=== PATIENT | male | born 1965 | race Caucasian/White ===

== ENCOUNTER 2023-05-19 13:13 | Inpatient (IN) | payer MEDICARE, BC, SELFPAY ==
[2023-05-19] VITALS (10 sets, daily range): BP systolic 81–144; BP diastolic 49–78; PULSE 68–93; RESP 16–20; TEMP 36.6–36.7; O2SAT 91–99; BMI 27.2; BMI 26.9
--- NOTE | 2023-05-19 13:59 | HMH.EDGENADL ---
Discharge Plan Disposition Patient Disposition: Admitted Clinical Impressions Clinical Impression: Acute hypokalemia, Cirrhosis, Ascites, Weakness, Hyponatremia Discharge ED Provider: Wai Smith General Adult HPI General Chief complaint: Weakness Stated complaint: weak, stomach pain Time Seen by Provider: 05/19/23 13:40 Mode of Arrival: Ambulatory Source of Information: Patient Limitations: No Limitations Description of Symptoms (Recalled from ER Triage Doc. by RN): pt to ed c/o weakness x3 days. pt reports a hx of alcohol induced cirrhosis. pt reports a recent hospitalization at [facility] for detox. pt c/o RUQ pain and weakness x3 days. pt reports mild nausea. History of Present Illness HPI narrative: Patient is a 57-year-old male with past medical history of alcohol induced cirrhosis who presents emergency department for evaluation of weakness. Patient has had global weakness for the last 3 days with intermittent right upper quadrant pain. Patient does not have a gallbladder. No current vomiting. No bloody stool. Patient is unknown what medicines he takes at home. He states he has no other comorbidities. He was admitted 2 months ago for decompensated alcoholic cirrhosis and was discharged with home health for which he declined. No other acute complaints at this time. No trauma. Related Data Allergies Allergy/AdvReac Type Severity Reaction Status Date / Time No Known Allergies Allergy Verified 05/19/23 14:37 [facility] Disclaimer: The information contained in this section may have been updated after the patient was seen, as this information can be updated by other users. Social History Smoking Status: Never smoker alcohol intake: former current occupational status: other Travel in the last 8 weeks: None ROS Obtained: Yes Systems reviewed as appropriate & no additional complaints except as documented Physical Exam General General appearance: alert and in no apparent distress Head Head exam: atraumatic and normocephalic Eye Eye exam: Present PERRL and EOMI ENT ENT exam: Present mucous membranes moist Neck Neck exam: Present normal inspection Chest Chest inspection: Present normal inspection and symmetric chest wall rise Respiratory Respiratory exam: Present normal lung sounds bilaterally; Absent respiratory distress Cardiovascular Cardiovascular exam: Present regular rate and normal rhythm Abdominal Exam Abdominal exam: Present soft and tenderness (Diffuse mild) Extremities Exam Extremities exam: Present normal inspection Neurological Exam Neurological exam: Present alert and oriented X3; Absent motor sensory deficit Psychiatric Psychiatric exam: Present normal affect Skin Skin exam: Present warm and dry Medical Decision Making Cm Inquiry Pt receiving controlled substance: No Vital Signs: 05/19/23 13:40 05/19/23 14:05 05/19/23 14:30 Temperature 97.9 F Temperature Source Oral Pulse Rate 89 87 Pulse Rate [Left Radial] 89 Respiratory Rate 20 Blood Pressure 96/53 L 99/59 L Blood Pressure [Right Arm] 144/78 H Blood Pressure Mean 67 Blood Pressure Mean [Right Arm] 100 02 Sat by Pulse Oximetry 95 99 92 L Oxygen Delivery Method Room Air Room Air 05/19/23 15:00 05/19/23 15:30 05/19/23 15:45 Temperature Temperature Source Pulse Rate 86 86 93 H Pulse Rate [Left Radial] Respiratory Rate Blood Pressure 103/56 L 99/53 L 81/49 L Blood Pressure [Right Arm] Blood Pressure Mean 70 61 55 Blood Pressure Mean [Right Arm] 02 Sat by Pulse Oximetry 92 L 94 L 91 L Oxygen Delivery Method 05/19/23 15:52 Temperature Temperature Source Pulse Rate 92 H Pulse Rate [Left Radial] Respiratory Rate Blood Pressure 90/49 L Blood Pressure [Right Arm] Blood Pressure Mean 58 Blood Pressure Mean [Right Arm] 02 Sat by Pulse Oximetry 93 L Oxygen Delivery Method Lab Data Lab Results 05/19/23 13:55: WBC 7.1, RBC 4.19 L, Hgb 10.5 L,
[2023-05-19 14:25] LABS: Basophils % 0.1 % (0.1-2.0); Eosinophils % 0.4 % (0.1-12.0); Hematocrit 32.1 % (42.0-52.0); Hemoglobin 10.5 g/dL (14.1-18.0); Lymphocytes # 0.5 K/mm3 (0.7-4.5); Lymphocytes % 7.6 % (10-50); Mean Corpuscular HGB Conc 32.7 g/dL (31.8-35.4); Mean Corpuscular Hemoglobin 25.1 pg (27.0-31.2); Mean Corpuscular Volume 76.8 fl (80-94); Mean Platelet Volume 10.4 fl (7.4-10.4); Monocytes # 0.4 K/mm3 (0.1-1.0); Monocytes % 5.2 % (1.7-9.3); Neutrophils # 6.2 K/mm3 (1.8-7.8); Neutrophils % 86.7 % (37.0-80.0); Platelet Count 159 K/mm3 (142-424); Red Blood Count 4.19 M/mm3 (4.60-6.20); White Blood Count 7.1 K/mm3 (4.8-10.8)
[2023-05-19 14:27] LABS: Chloride 89 mmol/L (98-107); Sodium 128 mmol/L (136-145)
[2023-05-19 14:28] LABS: MANUAL DIFFERENTIAL MANUAL DIFFERENTIAL (MANUAL DIFF)
[2023-05-19 14:29] LABS: VBG Base Excess 3.1 mmol/L (-2.4-2.3); VBG HCO3 25.2 mmol/L (23-30); VBG Oxygen Saturation 99.1 % (50-70); VBG PCO2 28.3 mmol/L (35-51); VBG PO2 143.6 mmol/L (28-40)
[2023-05-19 14:29] LABS: Alanine Aminotransferase 23 U/L (12-78); Alkaline Phosphatase 101 U/L (38-126); Aspartate Amino Transferase 57 U/L (17-59); Bilirubin,Total 2.6 mg/dl (0.2-1.3); Blood Urea Nitrogen 11 mg/dl (9-20); Creatinine Clearance Estimated 113 mL/min (50-200); Estimated Glomerular Filt Rate 88 ml/min (>60); GFR (African American) 106 ML/MIN (>60)
[2023-05-19 14:30] LABS: Albumin Level 2.3 g/dl (3.5-5.0); Albumin/Globulin Ratio 0.5 (1.1-1.8); Anion Gap 11.4 mEq/L (5-15); Calcium 8.1 mg/dl (8.4-10.2); Carbon Dioxide 30 mmol/L (22.0-30.0); Globulin 4.4 g/dL (1.3-3.2); Glucose 161 mg/dl (74-100); Lipase 364 U/L (23-300); Magnesium 1.8 mg/dl (1.6-2.3); Total Protein,Serum 6.7 g/dl (6.3-8.2)
[2023-05-19 14:32] LABS: Ammonia 88 umol/L (9-30)
[2023-05-19 14:33] LABS: VBG PH 7.57 mmol/L (7.31-7.41)
--- NOTE | 2023-05-19 14:35 | PC.NURSE ---
VBG critical results reported to MD Johnny Smith. ph 7.57; pco2 28.3, po2 143.6
[2023-05-19 14:42] LABS: Microscopic, Urine URINE MICROSCOPIC (MICROSCOPIC)
--- NOTE | 2023-05-19 14:43 | ECG_ITS ---
APPROVED REPORT Exam: Resting ECG HR:86 bpm ECG Measurements Heart Rate 86 AXES AZ 187 P 39 QRSd 120 QRS -34 QT 430 T 5 QTc 474 Conclusion SINUS RHYTHM WITH OCCASIONAL SUPRAVENTRICULAR PREMATURE COMPLEXES LEFT AXIS DEVIATION [QRS AXIS < -30] MODERATE INTRAVENTRICULAR CONDUCTION DELAY [110+ ms QRS DURATION] NONSPECIFIC T-WAVE ABNORMALITY with U waves noted PROLONGED QT INTERVAL ABNORMAL ECG UNCONFIRMED REPORT Electronically signed by : Wade Pastor MD 05/20/2023 17:14:12
--- NOTE | 2023-05-19 14:46 | PC.NURSE ---
Rounded on pt. No needs voiced at this time.
[2023-05-19 14:49] LABS: Ethyl Alcohol < 10 mg/dl (0-10); Lactic Acid 3.3 mmol/L (0.7-2.1)
[2023-05-19 14:51] LABS: Potassium 2.4 mmoL/L (3.5-5.1)
--- NOTE | 2023-05-19 14:51 | PC.NURSE ---
notified of critical k
[2023-05-19 15:21] LABS: Appearance,Urine CLEAR (Clear); Blood, Urine 1+ (Negative); Color,Urine YELLOW (Yellow); Glucose,Urine (UA) Negative (Negative); Ketones,Urine Negative (Negative); Leukocyte Esterase,Urine Negative (Negative); Nitrate,Urine Negative (Negative); Protein,Urine Negative (Negative); Urobilinogen,Urine >=8.0 EU/dl (0.2)
[2023-05-19 15:23] LABS: Bilirubin,Urine 2+ (Negative)
--- NOTE | 2023-05-19 15:38 | EXP.HP ---
History of Present Illness *Admission Date: 05/19/23 *Reason for visit:: Weakness *History of present illness: Mr. Montalvo is a 57-year-old male with recent diagnosis and prolonged stay at [facility] for cirrhosis. Was admitted for detox. Started on medications for his cirrhosis and has been at home until recently when he moved in with his mother several days ago. He has had progressive weakness over the past 2 to 3 days per his report and his mom's report. She brought him to the ER after finding him down in the bathroom this morning. Complains of some mild nausea and abdominal discomfort/pressure but no megan pain. No fever, chills, vomiting or diarrhea. Has not had a bowel movement in 2 days per his report. No blood in vomit or stool. Was admitted to [facility] 2 to 3 months ago for decompensated cirrhosis. Started on medications and informed to follow-up. Has a follow-up later this month with [facility] but has not seen a provider since discharge. Has been taking his diuretics. On arrival to the ER, found to have potassium of 2.4, ammonia of 88, and distention of abdomen. Diagnostic paracentesis performed. Started on empiric antibiotics with ceftriaxone. Medicine consulted for further management Evaluation after arriving to the floor, patient's mother is with him at bedside. She helps supplement history. Patient is slow to respond and not a good historian. He is in no acute distress. Blood pressures have been soft since arrival to the ER with systolics in the 90s to low 100s. Was taking midodrine at home for hypotension related to his cirrhosis. Has no peritoneal signs on exam. Is hungry and wanting to eat dinner. Stable on room air [facility] Disclaimer: The information contained in this section may have been updated after the patient was seen, as this information can be updated by other users. Medical History Alcohol dependence Cirrhosis Social History Smoking Status: Never smoker alcohol intake: former current occupational status: other Travel in the last 8 weeks: None Review of Systems Review of Systems Review of systems (narrative): 14 point review of systems performed, pertinent positives and negatives as per [facility] Meds Home Medications and Allergies New Prescriptions to Start Prescriptions: Allergies Allergy/AdvReac Type Severity Reaction Status Date / Time No Known Allergies Allergy Verified 05/19/23 14:37 Exam Data for Last 24 hours Vital signs and Labs for Last 24 Hours: Temp Pulse Resp BP Pulse Ox O2 Del Method 97.9 F 89 20 96/53 L 99 Room Air 05/19/23 13:40 05/19/23 14:05 05/19/23 13:40 05/19/23 14:05 05/19/23 14:05 05/19/23 14:05 Laboratory Results - last 24 hr 05/19/23 13:55: WBC 7.1, RBC 4.19 L, Hgb 10.5 L, Hct 32.1 L, MCV 76.8 L, MCH 25.1 L, MCHC 32.7, RDW 20.0 H, Plt Count 159, MPV 10.4, Neut % (Auto) 86.7 H, Lymph % (Auto) 7.6 L, [place] % (Auto) 5.2, Eos % (Auto) 0.4, Baso % (Auto) 0.1, Neut # (Auto) 6.2, Lymph # (Auto) 0.5 L, [place] # (Auto) 0.4, Eos # (Auto) 0.0, Baso # (Auto) 0.0, Sodium 128 L, Potassium 2.4 L*, Chloride 89 L, Carbon Dioxide 30, Anion Gap 11.4, BUN 11, Creatinine 0.90, Estimated Creat Clear 113, Estimated GFR 88, Est GFR ( Amer) 106, Glucose 161 H, Lactate 3.3 H, Calcium 8.1 L, Magnesium 1.8, Total Bilirubin 2.6 H, AST 57, ALT 23, Alkaline Phosphatase 101, Ammonia 88 H, Total Protein 6.7, Albumin 2.3 L, Globulin 4.4 H, Albumin/Globulin Ratio 0.5 L, Lipase 364 H, Plasma/Serum Alcohol < 10 05/19/23 14:12: VBG pH 7.57 H, VBG pCO2 28.3 L, VBG pO2 143.6 H, VBG HCO3 25.2, VBG Total CO2 26.0, VBG O2 Saturation 99.1 H, VBG Base Excess 3.1 H 05/19/23 14:32: Urine Color Yellow, Urine Appearance Clear, Urine pH 6.0, Ur Specific [place] 1.010, Urine Protein Negative, Urine Glucose (UA) Negative, Urine Ketones Negative, Urine Blood 1+, Urine Nitrate Negative, Ur
[2023-05-19 15:46] LABS: Appearance,Body Fld. Hazy; Source, Body Fld. Peritoneal Fluid; Volume,Body Fld. 60 mL
[2023-05-19 15:47] LABS: WBC,Urine Occasional #/hpf (0-3)
[2023-05-19 15:51] LABS: INR 1.47 (0.9-1.1); Prothrombin Time 15.5 seconds (10.1-12.5)
[2023-05-19 15:54] LABS: RBC,Body Fluid < 10 cells/uL (< 10 X 10^3); TNC,Body Fluid 763 cells/uL (< 1000)
[2023-05-19 16:04] LABS: Hypochromasia 1+; Lymphocytes % 17 % (10-50); Monocytes % 6 % (2-9); Neutrophils % 77 % (42-76); Platelet Estimate Normal; Total Cells Counted 100
[2023-05-19 16:05] LABS: Microcytosis 1+
[2023-05-19 16:37] LABS: Mononuclear WBCs,Body Fluid 30 %; Polynuclear WBC,Body Fluid 37 %
--- NOTE | 2023-05-19 18:09 | PC.NURSE ---
Report from ER.
--- NOTE | 2023-05-19 18:17 | PC.NURSE ---
arrived by stretcher from ED
[2023-05-19 18:21] LABS: Reflex Lactic Add Lactic Reflex
--- NOTE | 2023-05-19 18:53 | PC.NURSE ---
Keep order for Levophed in the event the patients pressure requires it. Do not start drip at this time.
[2023-05-19 19:17] LABS: Lactic Acid Follow Up (RFLX 1) 3.3 mmol/L (0.7-2.1)
[2023-05-19 20:45] LABS: Reflex Lactic (2 hrs) Add Lactic Reflex
[2023-05-19 21:42] LABS: Lactic Acid Follow up (RFLX 2) 2.7 mmol/L (0.7-2.1)
[2023-05-20] VITALS (9 sets, daily range): BP systolic 91–117; BP diastolic 50–65; PULSE 80–108; RESP 16–20; TEMP 36.6–37.1; O2SAT 92–98; BMI 170.0
--- NOTE | 2023-05-20 06:24 | PC.NURSE ---
pt has been hypotensive through the night, spoke to hospitalist concerning order for norepinephrine order on nov. he instructed to hold off and monitor bp and may add a time 1 midodrine if needed. pt denies symptoms. reports he has hx of hypotension
[2023-05-20 07:04] LABS: Alanine Aminotransferase 21 U/L (12-78); Albumin Level 2.3 g/dl (3.5-5.0); Albumin/Globulin Ratio 0.5 (1.1-1.8); Alkaline Phosphatase 116 U/L (38-126); Anion Gap 11.5 mEq/L (5-15); Aspartate Amino Transferase 33 U/L (17-59); Bilirubin,Total 1.9 mg/dl (0.2-1.3); Blood Urea Nitrogen 8 mg/dl (9-20); Calcium 7.6 mg/dl (8.4-10.2); Carbon Dioxide 26 mmol/L (22.0-30.0); Chloride 96 mmol/L (98-107); Creatinine Clearance Estimated 108 mL/min (50-200); Estimated Glomerular Filt Rate 100 ml/min (>60); GFR (African American) 121 ML/MIN (>60); Globulin 4.2 g/dL (1.3-3.2); Glucose 116 mg/dl (74-100); Magnesium 1.9 mg/dl (1.6-2.3); Sodium 131 mmol/L (136-145); Total Protein,Serum 6.5 g/dl (6.3-8.2)
[2023-05-20 07:28] LABS: Basophils % 0.2 % (0.1-2.0); Eosinophils % 0.4 % (0.1-12.0); Hematocrit 33.3 % (42.0-52.0); Hemoglobin 10.2 g/dL (14.1-18.0); Lymphocytes # 0.6 K/mm3 (0.7-4.5); Lymphocytes % 14.3 % (10-50); Mean Corpuscular HGB Conc 30.8 g/dL (31.8-35.4); Mean Corpuscular Hemoglobin 24.2 pg (27.0-31.2); Mean Corpuscular Volume 78.9 fl (80-94); Mean Platelet Volume 8.4 fl (7.4-10.4); Monocytes # 0.2 K/mm3 (0.1-1.0); Monocytes % 5.3 % (1.7-9.3); Neutrophils # 3.5 K/mm3 (1.8-7.8); Neutrophils % 79.8 % (37.0-80.0); Platelet Count 141 K/mm3 (142-424); Red Blood Count 4.22 M/mm3 (4.60-6.20); White Blood Count 4.4 K/mm3 (4.8-10.8)
[2023-05-20 07:30] LABS: Potassium 2.5 mmoL/L (3.5-5.1)
--- NOTE | 2023-05-20 07:34 | HMH.PHAINT1 ---
Pharmacy Intervention Comments: Medication history complete, medications verified with fill history. - Teresa Parker, PharmD Candidate 2023
--- NOTE | 2023-05-20 08:39 | EXP.PHA.CONS ---
Pharmacy Consult Date: 05/20/23 Time: 08:40 Referring provider: ALEXUS Reason for Consult:: PHARMACY CONSULTED TO DOSE VANCOMYCIN THERAPY Allergies Allergy/AdvReac Type Severity Reaction Status Date / Time No Known Allergies Allergy Verified 05/19/23 14:37 Home Medications Medication Instructions Recorded Confirmed Type albuterol sulfate 90 mcg/actuation 90 inh inhalation DAILYP PRN 05/19/23 05/19/23 History aerosol inhaler Wheezing or Shortness of Breath furosemide 40 mg tablet 40 mg PO DAILY Fluid 05/19/23 05/19/23 History lactulose 10 gram/15 mL oral 10 g PO TID Supplement 05/19/23 05/19/23 History solution midodrine 5 mg tablet 5 mg PO TID Low Blood Pressure 05/19/23 05/20/23 History pantoprazole 40 mg tablet,delayed 40 mg PO BID Acid Reflux 05/19/23 05/19/23 History release spironolactone 25 mg tablet 12.5 mg PO DAILY Fluid 05/19/23 05/20/23 History ferrous gluconate 324 mg (38 mg 324 mg PO DAILY Supplement 05/20/23 05/20/23 History iron) tablet New Prescriptions to Start Prescriptions: Height: 1.78 m Weight: 85.275 kg Laboratory Results:: Laboratory Results - last 24 hr 05/19/23 13:55: WBC 7.1, RBC 4.19 L, Hgb 10.5 L, Hct 32.1 L, MCV 76.8 L, MCH 25.1 L, MCHC 32.7, RDW 20.0 H, Plt Count 159, MPV 10.4, Neut % (Auto) 86.7 H, Lymph % (Auto) 7.6 L, [place] % (Auto) 5.2, Eos % (Auto) 0.4, Baso % (Auto) 0.1, Neut # (Auto) 6.2, Lymph # (Auto) 0.5 L, [place] # (Auto) 0.4, Eos # (Auto) 0.0, Baso # (Auto) 0.0, Total Counted 100, Neutrophils % (Manual) 77 H, Lymphocytes % (Manual) 17, Monocytes % (Manual) 6, Platelet Estimate Normal, RBC Morphology Not Reportable, Hypochromasia 1+, Microcytosis 1+, PT 15.5 H, INR 1.47 H, Sodium 128 L, Potassium 2.4 L*, Chloride 89 L, Carbon Dioxide 30, Anion Gap 11.4, BUN 11, Creatinine 0.90, Estimated Creat Clear 113, Estimated GFR 88, Est GFR ( Amer) 106, Glucose 161 H, Lactate 3.3 H, Calcium 8.1 L, Magnesium 1.8, Total Bilirubin 2.6 H, AST 57, ALT 23, Alkaline Phosphatase 101, Ammonia 88 H, Total Protein 6.7, Albumin 2.3 L, Globulin 4.4 H, Albumin/Globulin Ratio 0.5 L, Lipase 364 H, Plasma/Serum Alcohol < 10 05/19/23 14:12: VBG pH 7.57 H, VBG pCO2 28.3 L, VBG pO2 143.6 H, VBG HCO3 25.2, VBG Total CO2 26.0, VBG O2 Saturation 99.1 H, VBG Base Excess 3.1 H 05/19/23 14:32: Urine Color Yellow, Urine Appearance Clear, Urine pH 6.0, Ur Specific [place] 1.010, Urine Protein Negative, Urine Glucose (UA) Negative, Urine Ketones Negative, Urine Blood 1+, Urine Nitrate Negative, Urine Bilirubin 2+ A, Urine Urobilinogen >=8.0, Ur Leukocyte Esterase Negative, Urine RBC 3-5, Urine WBC Occasional, Ur Squamous Epith Cells 3-5, Urine Bacteria None 05/19/23 15:30: Fluid Source Peritoneal fluid, Fluid Volume 60, Fluid Appearance Hazy, Fluid RBC (Auto) < 10, Fld Tot Nucleated Cell 763, Fld Polynuclear WBCs % 37, Fld Mononuclear WBCs % 30 05/19/23 18:40: Lactate 3.3 H 05/19/23 21:20: Lactate 2.7 H 05/20/23 06:25: WBC 4.4 L D, RBC 4.22 L, Hgb 10.2 L, Hct 33.3 L, MCV 78.9 L, MCH 24.2 L, MCHC 30.8 L, RDW 20.0 H, Plt Count 141 L, MPV 8.4, Neut % (Auto) 79.8, Lymph % (Auto) 14.3, [place] % (Auto) 5.3, Eos % (Auto) 0.4, Baso % (Auto) 0.2, Neut # (Auto) 3.5, Lymph # (Auto) 0.6 L, [place] # (Auto) 0.2, Eos # (Auto) 0.0, Baso # (Auto) 0.0, Sodium 131 L, Potassium 2.5 L*, Chloride 96 L, Carbon Dioxide 26, Anion Gap 11.5, BUN 8 L D, Creatinine 0.80, Estimated Creat Clear 108, Estimated GFR 100, Est GFR ( Amer) 121, Glucose 116 H D, Calcium 7.6 L, Magnesium 1.9, Total Bilirubin 1.9 H, AST 33 D, ALT 21, Alkaline Phosphatase 116, Total Protein 6.5, Albumin 2.3 L, Globulin 4.2 H, Albumin/Globulin Ratio 0.5 L Medical History: Medical History (Updated 05/20/23 @ 02:36 by Gloria Colón RN) Alcohol dependence Cirrhosis History of gastroesophageal reflux (GERD) Hypotension Swelling Assessment and Plan Assessment and plan all Dx Assessment and Plan for all problems:: PHARMACY CONSULTED TO MANAGE VANCOMYCIN THERAPY. PT
--- NOTE | 2023-05-20 10:57 | EXP.ACUTE.PN ---
Subjective *Date: 05/20/23 *Time: 20:12 Interval history: Patient stable this morning. Afebrile. Blood cultures returned positive for suspected strep species. Denies any nausea or vomiting. Had large bowel movement this morning. Stable on room air. Making urine. Having some increased abdominal pain, requesting pain meds Medical Exam Vital signs and Labs for Last 24 Hours: Vital Signs Temp Pulse Pulse Resp BP BP Pulse Ox 05/20/23 08:00 97.8 F 107 H 18 117/65 95 05/20/23 05:00 05/20/23 05:00 80 05/20/23 04:00 98 F 84 16 91/57 L 92 L 05/19/23 20:00 80 05/20/23 03:00 05/20/23 01:00 05/19/23 23:00 05/19/23 21:00 05/19/23 19:00 05/19/23 20:00 05/20/23 00:00 98.2 F 82 16 91/50 L 96 05/19/23 20:00 98.1 F 87 17 90/54 L 94 L 05/19/23 18:55 05/19/23 18:39 98.1 F 68 16 112/56 L 05/19/23 18:33 98.1 F 68 16 112/56 L 93 L 05/19/23 15:52 92 H 90/49 L 93 L 05/19/23 15:45 93 H 81/49 L 91 L 05/19/23 15:30 86 99/53 L 94 L 05/19/23 15:00 86 103/56 L 92 L 05/19/23 14:30 87 99/59 L 92 L 05/19/23 14:05 89 96/53 L 99 05/19/23 13:40 97.9 F 89 20 144/78 H 95 O2 Del Method 05/20/23 08:00 Room Air 05/20/23 05:00 Room Air 05/20/23 05:00 05/20/23 04:00 Room Air 05/19/23 20:00 05/20/23 03:00 Room Air 05/20/23 01:00 Room Air 05/19/23 23:00 Room Air 05/19/23 21:00 Room Air 05/19/23 19:00 Room Air 05/19/23 20:00 Room Air 05/20/23 00:00 Room Air 05/19/23 20:00 Room Air 05/19/23 18:55 Room Air 05/19/23 18:39 Room Air 05/19/23 18:33 Room Air 05/19/23 15:52 05/19/23 15:45 05/19/23 15:30 05/19/23 15:00 05/19/23 14:30 05/19/23 14:05 Room Air 05/19/23 13:40 Room Air Intake and Output 05/19/23 05/20/23 05/20/23 23:59 07:59 15:59 Intake Total 960 / 960 Output Total 700 / 900 1200 / 1200 Balance -700 / -900 -1200 / -240 960 / -240 Intake: Intake, Oral Amount 960 / 960 Output: Output, Urine Amount 700 / 900 1200 / 1200 Other: Number of Unmeasured Voids 0 Weight 85.275 kg 538.822 kg 85.275 kg Patient Weight 05/20/23 23:59 Weight 85.275 kg Laboratory Results - last 24 hr 05/19/23 13:55: WBC 7.1, RBC 4.19 L, Hgb 10.5 L, Hct 32.1 L, MCV 76.8 L, MCH 25.1 L, MCHC 32.7, RDW 20.0 H, Plt Count 159, MPV 10.4, Neut % (Auto) 86.7 H, Lymph % (Auto) 7.6 L, [place] % (Auto) 5.2, Eos % (Auto) 0.4, Baso % (Auto) 0.1, Neut # (Auto) 6.2, Lymph # (Auto) 0.5 L, [place] # (Auto) 0.4, Eos # (Auto) 0.0, Baso # (Auto) 0.0, Total Counted 100, Neutrophils % (Manual) 77 H, Lymphocytes % (Manual) 17, Monocytes % (Manual) 6, Platelet Estimate Normal, RBC Morphology Not Reportable, Hypochromasia 1+, Microcytosis 1+, PT 15.5 H, INR 1.47 H, Sodium 128 L, Potassium 2.4 L*, Chloride 89 L, Carbon Dioxide 30, Anion Gap 11.4, BUN 11, Creatinine 0.90, Estimated Creat Clear 113, Estimated GFR 88, Est GFR ( Amer) 106, Glucose 161 H, Lactate 3.3 H, Calcium 8.1 L, Magnesium 1.8, Total Bilirubin 2.6 H, AST 57, ALT 23, Alkaline Phosphatase 101, Ammonia 88 H, Total Protein 6.7, Albumin 2.3 L, Globulin 4.4 H, Albumin/Globulin Ratio 0.5 L, Lipase 364 H, Plasma/Serum Alcohol < 10 05/19/23 14:12: VBG pH 7.57 H, VBG pCO2 28.3 L, VBG pO2 143.6 H, VBG HCO3 25.2, VBG Total CO2 26.0, VBG O2 Saturation 99.1 H, VBG Base Excess 3.1 H 05/19/23 14:32: Urine Color Yellow, Urine Appearance Clear, Urine pH 6.0, Ur Specific [place] 1.010, Urine Protein Negative, Urine Glucose (UA) Negative, Urine Ketones Negative, Urine Blood 1+, Urine Nitrate Negative, Urine Bilirubin 2+ A, Urine Urobilinogen >=8.0, Ur Leukocyte Esterase Negative, Urine RBC 3-5, Urine WBC Occasional, Ur Squamous Epith Cells 3-5, Urine Bacteria None 05/19/23 15:30: Fluid Source Peritoneal fluid, Fluid Volume 60, Fluid Appearance Hazy, Fluid RBC (Auto) < 10, Fld Tot Nucleated Cell 763, Fld Polynuclear WBCs % 37,
--- NOTE | 2023-05-20 11:57 | PC.NURSE ---
Patient called out states, stop the potassium for now. it dinero and I cant stand it. Infusion put in standby, 1/2 bag order.
[2023-05-20 19:43] LABS: Chloride 98 mmol/L (98-107); Sodium 130 mmol/L (136-145)
[2023-05-20 19:44] LABS: Potassium 3.2 mmoL/L (3.5-5.1)
[2023-05-20 19:46] LABS: Blood Urea Nitrogen 8 mg/dl (9-20); Creatinine Clearance Estimated 126 mL/min (50-200); Estimated Glomerular Filt Rate 100 ml/min (>60); GFR (African American) 121 ML/MIN (>60)
[2023-05-20 19:47] LABS: Anion Gap 10.2 mEq/L (5-15); Calcium 6.9 mg/dl (8.4-10.2); Carbon Dioxide 25 mmol/L (22.0-30.0); Glucose 192 mg/dl (74-100)
--- NOTE | 2023-05-20 19:47 | PC.NURSE ---
IV in LAC removed r/t pain, swelling, and warmth.
[2023-05-21] VITALS (8 sets, daily range): BP systolic 93–135; BP diastolic 40–72; PULSE 80–106; RESP 16–20; TEMP 36.7–37.2; O2SAT 93–99; BMI 27.6
--- NOTE | 2023-05-21 00:01 | PC.NURSE ---
IV in RFA came out while pt was asleep, new IV placed in RAC
[2023-05-21 06:40] LABS: Basophils % 0.4 % (0.1-2.0); Eosinophils % 0.6 % (0.1-12.0); Hematocrit 33.1 % (42.0-52.0); Hemoglobin 10.2 g/dL (14.1-18.0); Lymphocytes # 0.7 K/mm3 (0.7-4.5); Lymphocytes % 19.9 % (10-50); Mean Corpuscular HGB Conc 30.8 g/dL (31.8-35.4); Mean Corpuscular Hemoglobin 24.4 pg (27.0-31.2); Mean Platelet Volume 7.9 fl (7.4-10.4); Monocytes # 0.3 K/mm3 (0.1-1.0); Monocytes % 8.4 % (1.7-9.3); Neutrophils # 2.6 K/mm3 (1.8-7.8); Neutrophils % 70.6 % (37.0-80.0); Platelet Count 144 K/mm3 (142-424); Red Blood Count 4.19 M/mm3 (4.60-6.20); Red Cell Distribution Width 20.2 % (11.5-17.5); White Blood Count 3.7 K/mm3 (4.8-10.8)
[2023-05-21 06:48] LABS: Alanine Aminotransferase 16 U/L (12-78); Albumin Level 2.1 g/dl (3.5-5.0); Albumin/Globulin Ratio 0.5 (1.1-1.8); Alkaline Phosphatase 103 U/L (38-126); Anion Gap 10.3 mEq/L (5-15); Aspartate Amino Transferase 32 U/L (17-59); Bilirubin,Total 1.4 mg/dl (0.2-1.3); Blood Urea Nitrogen 8 mg/dl (9-20); Calcium 7.5 mg/dl (8.4-10.2); Carbon Dioxide 26 mmol/L (22.0-30.0); Chloride 100 mmol/L (98-107); Creatinine Clearance Estimated 148 mL/min (50-200); Estimated Glomerular Filt Rate 117 ml/min (>60); GFR (African American) 142 ML/MIN (>60); Glucose 126 mg/dl (74-100); Magnesium 1.7 mg/dl (1.6-2.3); Potassium 3.3 mmoL/L (3.5-5.1); Sodium 133 mmol/L (136-145); Total Protein,Serum 6.1 g/dl (6.3-8.2)
[2023-05-21 06:53] LABS: INR 1.39 (0.9-1.1); Prothrombin Time 14.7 seconds (10.1-12.5)
[2023-05-21 09:25] LABS: Vancomycin,Trough 23.1 ug/mL (5.0-10.0)
--- NOTE | 2023-05-21 10:17 | HMH.OTEV ---
OT Inpatient Evaluation Rehab OT IP Evaluation Start: 05/20/23 17:54 Freq: ONCE Status: Active Protocol: Document 05/21/23 10:01 PERFECTO (Rec: 05/21/23 10:17 PERFECTO [id number]) Rehab OT IP Assessment Subjective History Mr. Montalvo is a 57-year-old male with recent diagnosis and prolonged stay at [facility] for cirrhosis. Was admitted for detox. Started on medications for his cirrhosis and has been at home until recently when he moved in with his mother several days ago. He has had progressive weakness over the past 2 to 3 days per his report and his mom's report. She brought him to the ER after finding him down in the bathroom this morning. Complains of some mild nausea and abdominal discomfort/pressure but no megan pain. No fever, chills, vomiting or diarrhea. Has not had a bowel movement in 2 days per his report. No blood in vomit or stool. Was admitted to [facility] 2 to 3 months ago for decompensated cirrhosis. Started on medications and informed to follow-up. Has a follow-up later this month with [facility] but has not seen a provider since discharge. Has been taking his diuretics. On arrival to the ER, found to have potassium of 2.4, ammonia of 88, and distention of abdomen. Diagnostic paracentesis performed. Started on empiric antibiotics with ceftriaxone. Medicine consulted for further management Evaluation after arriving to the floor, patient's mother is with him at bedside. She helps supplement history. Patient is slow to respond and
--- NOTE | 2023-05-21 10:46 | EXP.PHA.CONS ---
Pharmacy Consult Date: 05/21/23 Time: 10:46 Referring provider: DR. VARNER Reason for Consult:: VANCOMYCIN DOSE CHANGE Allergies Allergy/AdvReac Type Severity Reaction Status Date / Time No Known Allergies Allergy Verified 05/19/23 14:37 Home Medications Medication Instructions Recorded Confirmed Type albuterol sulfate 90 mcg/actuation 90 inh inhalation DAILYP PRN 05/19/23 05/19/23 History aerosol inhaler Wheezing or Shortness of Breath furosemide 40 mg tablet 40 mg PO DAILY Fluid 05/19/23 05/19/23 History lactulose 10 gram/15 mL oral 10 g PO TID Supplement 05/19/23 05/19/23 History solution midodrine 5 mg tablet 5 mg PO TID Low Blood Pressure 05/19/23 05/20/23 History pantoprazole 40 mg tablet,delayed 40 mg PO BID Acid Reflux 05/19/23 05/19/23 History release spironolactone 25 mg tablet 12.5 mg PO DAILY Fluid 05/19/23 05/20/23 History ferrous gluconate 324 mg (38 mg 324 mg PO DAILY Supplement 05/20/23 05/20/23 History iron) tablet New Prescriptions to Start Prescriptions: Height: 1.78 m Weight: 87.77 kg Laboratory Results:: Laboratory Results - last 24 hr 05/20/23 19:18: Sodium 130 L, Potassium 3.2 L D, Chloride 98, Carbon Dioxide 25, Anion Gap 10.2, BUN 8 L, Creatinine 0.80, Estimated Creat Clear 126, Estimated GFR 100, Est GFR ( Amer) 121, Glucose 192 H D, Calcium 6.9 L 05/21/23 06:06: WBC 3.7 L, RBC 4.19 L, Hgb 10.2 L, Hct 33.1 L, MCV 79.0 L, MCH 24.4 L, MCHC 30.8 L, RDW 20.2 H, Plt Count 144, MPV 7.9, Neut % (Auto) 70.6, Lymph % (Auto) 19.9, [place] % (Auto) 8.4, Eos % (Auto) 0.6, Baso % (Auto) 0.4, Neut # (Auto) 2.6, Lymph # (Auto) 0.7, [place] # (Auto) 0.3, Eos # (Auto) 0.0, Baso # (Auto) 0.0, PT 14.7 H, INR 1.39 H, Sodium 133 L, Potassium 3.3 L, Chloride 100, Carbon Dioxide 26, Anion Gap 10.3, BUN 8 L, Creatinine 0.70, Estimated Creat Clear 148, Estimated GFR 117, Est GFR ( Amer) 142, Glucose 126 H D, Calcium 7.5 L, Magnesium 1.7 D, Total Bilirubin 1.4 H, AST 32, ALT 16, Alkaline Phosphatase 103, Total Protein 6.1 L, Albumin 2.1 L, Globulin 4.0 H, Albumin/Globulin Ratio 0.5 L 05/21/23 08:10: Vancomycin Trough 23.1 H Medical History: Medical History (Updated 05/20/23 @ 20:14 by Ever Varner MD) Alcohol dependence Cirrhosis History of gastroesophageal reflux (GERD) Hypotension Swelling Assessment and Plan Assessment and plan all Dx Assessment and Plan for all problems:: Pharmacokinetic dosing service Objective: Patient: Floor: Age: 57 yo Serum creatinine: 0.8 mg/dL Height: 70.1 Inches Weight (kg): 88 Assessment: IBW (kg): 73.23 Dosing wt(kg): 88 Estimated Creatinine clearance (ml/min): 108.1 CRCL method: Cockcroft and Gault using ibw(default). Drug selected: Vancomycin Loading dose (mg): 0 Vd (liters): 70.4 (factor used: 0.8 L/kg) Chaz (hr-1): 0.094 Half life (hrs): 7.37 Recommended dose: 1750 mg Interval: 12 hrs Infusion time (hrs): 2.0 Predicted peak (mcg/mL): 33.5 Predicted trough (mcg/mL): 13.09 Total body weight is being used for vancomycin dosing. Recommendations: PATIENT'S VANCOMYCIN TROUGH LEVEL WAS 23.1 MCG/ML THIS AM. RECOMMEND CHANGING TO Vancomycin 1750 mg q 12 hrs with an expected Cpeak of 33.5 mcg/ml and an expected Ctrough of 13.09 mcg/ml. ----Vanco only - ignore for aminoglycosides----- CLvanco= 6.62 L/hr AUC 0-24 /SABRINA Data: SABRINA 0.5 mcg/mL: AUC/SABRINA: 1057.4 SABRINA 1.0 mcg/mL: AUC/SABRINA: 528.7 --------- SABRINA 1.5 mcg/mL: AUC/SABRINA: 352.5 SABRINA 2.0 mcg/mL: AUC/SABRINA: 264.4
--- NOTE | 2023-05-21 10:57 | HMH.PTEV ---
Physical Therapy Evaluation Rehab PT IP Evaluation Start: 05/20/23 17:54 Freq: ONCE Status: Active Protocol: Document 05/21/23 10:51 CONREL (Rec: 05/21/23 10:57 CORNEL [id number]) Subjective/History History History 57 yowm adm to [facility] with hypokalemia and weakness. He has hx of cirrhosis and R BKA. He reports he lives alone, but has a friend that stays with him. He also reports he is independent with all mobility and ADLs using a RW. Subjective Subjective Pt has no c/o this am. New diagnosis of cancer in past 12 No months? Rehab PT IP Eval Objective Appearance Patient Behavior Appropriate Patient Orientation Person,Place,Time Difficulty following instructions none Speech Pattern Clear Ambulation Patient Able to Ambulate Yes Ambulation Observation IP General Gait Pattern Observation No Deviations/Normal Ambulation Distance (feet) 30 Ambulation Assistive Device Rolling Walker Ambulation Ability Independent Balance Ability to Arise Able, uses arms to help Sitting Balance Steady, safe Standing Balance Steady, wide stance Dynamic Sitting Balance Ability Good Dynamic Standing Balance Ability Good Transfers Bed Transfer Ability Independent Chair Transfer Ability Independent Sit to Stand Bed Transfer Ability Independent Sit to Stand Chair Transfer Ability Independent Rehab PT IP prob,goals,plan Problems Date of Evaluation: 05/21/23 Discharge Plan PT Discharge Plan Pt is currently independent with all mobility and is appropriate to return home once medically stable for d/c. G -code Required No Eval Complexity Eval Charge Codes 07379 - High Complexity PHYSICIAN CERTIFICATION: I certify the specified therapy services for [facility] are required, authorized, and reviewed every 30 days.
[2023-05-21 12:05] LABS: LD, Body Fluid 70 IU/L (.); Protein, Body Fluid 1.4 g/dL (.)
--- NOTE | 2023-05-21 14:19 | EXP.PN ---
Subjective *Date: 05/21/23 *Time: 14:19 Interval history: The patient is seen and evaluated today. I am accompanied by his nurse Molly. The patient reports routine GI care with Dr. Medina in [place] and reports [facility] for his hepatology experience. 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 He reports that he is feeling better. Nursing staff report that he remains afebrile with stable vital signs and chronically low blood pressures on his cirrhosis therapy. He denies hematemesis, fever or abdominal pain. He is tolerating his IV antibiotic with no adverse events. He reports its been 18 days since his last alcohol intake. Exam Data for Last 24 hours Vital signs and Labs for Last 24 Hours: Temp Pulse Resp BP Pulse Ox O2 Del Method 98.0 F 90 18 93/41 L 95 Room Air 05/21/23 11:17 05/21/23 12:00 05/21/23 11:17 05/21/23 11:17 05/21/23 11:17 05/21/23 13:00 Laboratory Results - last 24 hr 05/19/23 15:30: Fluid Total Protein 1.4, Fluid LDH 70 05/20/23 19:18: Sodium 130 L, Potassium 3.2 L D, Chloride 98, Carbon Dioxide 25, Anion Gap 10.2, BUN 8 L, Creatinine 0.80, Estimated Creat Clear 126, Estimated GFR 100, Est GFR ( Amer) 121, Glucose 192 H D, Calcium 6.9 L 05/21/23 06:06: WBC 3.7 L, RBC 4.19 L, Hgb 10.2 L, Hct 33.1 L, MCV 79.0 L, MCH 24.4 L, MCHC 30.8 L, RDW 20.2 H, Plt Count 144, MPV 7.9, Neut % (Auto) 70.6, Lymph % (Auto) 19.9, [place] % (Auto) 8.4, Eos % (Auto) 0.6, Baso % (Auto) 0.4, Neut # (Auto) 2.6, Lymph # (Auto) 0.7, [place] # (Auto) 0.3, Eos # (Auto) 0.0, Baso # (Auto) 0.0, PT 14.7 H, INR 1.39 H, Sodium 133 L, Potassium 3.3 L, Chloride 100, Carbon Dioxide 26, Anion Gap 10.3, BUN 8 L, Creatinine 0.70, Estimated Creat Clear 148, Estimated GFR 117, Est GFR ( Amer) 142, Glucose 126 H D, Calcium 7.5 L, Magnesium 1.7 D, Total Bilirubin 1.4 H, AST 32, ALT 16, Alkaline Phosphatase 103, Total Protein 6.1 L, Albumin 2.1 L, Globulin 4.0 H, Albumin/Globulin Ratio 0.5 L 05/21/23 08:10: Vancomycin Trough 23.1 H I & O for Last 24 hours: Intake & Output 05/18/23 05/19/23 05/20/23 05/21/23 23:59 23:59 23:59 23:59 Intake Total 1902 / 2152 850 / 850 Output Total 700 / 900 1950 / 2450 1875 / 1875 Balance -700 / -900 -48 / -298 -1025 / -1025 Weight 85.275 kg 85.275 kg 87.77 kg Microbiology Reports for the Last 24 Hours: Microbiology 05/19/23 16:10 Blood Blood Culture - Preliminary Gram Positive Cocci 05/19/23 15:43 Blood Blood Culture - Preliminary Gram Positive Cocci 05/19/23 15:30 Ascites Fluid Gram Stain - Final 05/19/23 15:30 Ascites Fluid Body Fluid Culture - Preliminary NO GROWTH AFTER 24 HOURS Constitutional Constitutional: no acute distress, chronically ill appearing, disheveled and cooperative *Routine HEENT Exam Head: Present normocephalic *Routine Neck Exam Neck: Present supple *Routine Respiratory Exam Respiratory: Present rhonchi, normal respiratory effort and symmetric chest movement *Routine Cardiovascular Exam Cardiovascular: Present RRR *Routine Abdominal Exam Abdominal: Present soft, normoactive bowel sounds and distended *Routine Extremities Exam Extremities: Present edema and full ROM *Routine Skin Exam Skin: Present warm *Routine Neurological Exam Neurological: Present alert, oriented X3, moving all extremities and normal speech Routine Psychiatric Exam Psychiatric: Present normal affect, normal thought process, cooperative, good insight and good judgment Assessment and Plan *Assessment and plan (1) SBP (spontaneous bacterial peritonitis): Status: Acute Category: Medical Code(s): K65.2 - Spontaneous bacterial peritonitis (2) Bacteremia: Status: Acute Category: Medical Code(s): R78.81 - Bacteremia (3) Acute hypokalemia: Status: Acute Category: Medical Code(s): E87.6 - H
--- NOTE | 2023-05-21 17:37 | PC.NURSE ---
Pt A&O x4. Has c/o some discomfort to abdomen today. Medicated per nov. Abdomen ascitic. BS active. He has ambulated with stand by assistance to BR. Has had 2 stools this shift. Family has visited. Call light within reach.
[2023-05-22] VITALS: BP 93/48; PULSE 108; PULSE 110; RESP 20; TEMP 37.2; O2SAT 95
[2023-05-22 04:00] VITALS: BP 108/57; PULSE 100; PULSE 103; RESP 18; TEMP 36.9; O2SAT 93; BMI 28.6
[2023-05-22 06:36] LABS: Alanine Aminotransferase 16 U/L (12-78); Albumin Level 2.1 g/dl (3.5-5.0); Albumin/Globulin Ratio 0.5 (1.1-1.8); Alkaline Phosphatase 99 U/L (38-126); Anion Gap 9.1 mEq/L (5-15); Aspartate Amino Transferase 31 U/L (17-59); Bilirubin,Total 1.4 mg/dl (0.2-1.3); Blood Urea Nitrogen 7 mg/dl (9-20); Calcium 7.9 mg/dl (8.4-10.2); Carbon Dioxide 25 mmol/L (22.0-30.0); Chloride 102 mmol/L (98-107); Creatinine Clearance Estimated 134 mL/min (50-200); Estimated Glomerular Filt Rate 100 ml/min (>60); GFR (African American) 121 ML/MIN (>60); Glucose 114 mg/dl (74-100); Potassium 4.1 mmoL/L (3.5-5.1); Sodium 132 mmol/L (136-145); Total Protein,Serum 6.1 g/dl (6.3-8.2)
[2023-05-22 08:00] VITALS: BP 97/45; PULSE 100; PULSE 102; RESP 16; TEMP 36.6; O2SAT 94; O2SAT 98
[2023-05-22 08:14] LABS: Ammonia 26 umol/L (9-30)
[2023-05-22 09:25] LABS: Procalcitonin 0.568 ng/mL (0.0-2.0)
--- NOTE | 2023-05-22 11:27 | EXP.DC.SUM ---
General Admission date:: 05/19/23 Discharge date: 05/22/23 HPI HPI HPI: Mr. Montalvo is a 57-year-old male with recent diagnosis and prolonged stay at [facility] for cirrhosis. Was admitted for detox. His past medical history significant for alcohol use disorder with severe dependence currently in remission, intravenous drug use approximately 5 years ago and ongoing cirrhosis with ascites. Esophageal varices, portal hypertension or previous history is of SBP is unknown to the historian. Medical noncompliance is reported. He was started on medications for his cirrhosis and has been at home until recently when he moved in with his mother several days ago. He has had progressive weakness over the past 2 to 3 days per his report and his mom's report. She brought him to the ER after finding him down in the bathroom this morning. Complains of some mild nausea and abdominal discomfort/pressure but no megan pain. No fever, chills, vomiting or diarrhea. Has not had a bowel movement in 2 days per his report. No blood in vomit or stool. Was admitted to [facility] 2 to 3 months ago for decompensated cirrhosis. Started on medications and informed to follow-up. Has a follow-up later this month with [facility] but has not seen a provider since discharge. Has been taking his diuretics. On arrival to the ER, found to have potassium of 2.4, ammonia of 88, and distention of abdomen. Diagnostic paracentesis performed. Started on empiric antibiotics with ceftriaxone. Medicine consulted for further management Evaluation after arriving to the floor, patient's mother is with him at bedside. She helps supplement history. Patient is slow to respond and not a good historian. He is in no acute distress. Blood pressures have been soft since arrival to the ER with systolics in the 90s to low 100s. Was taking midodrine at home for hypotension related to his cirrhosis. Has no peritoneal signs on exam. Is hungry and wanting to eat dinner. Stable on room air Hospital Course Hospital Course Hospital Course: The patient was admitted to the medical unit with telemetry monitoring. Imaging was acquired. Labs and inflammatory markers were trended. Blood cultures were acquired with repeat blood cultures after identifying positive findings on May 19. He was maintained on IV antibiotic therapy. 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 Lactulose therapy Rifaximin therapy Loop diuretic therapy Aldosterone antagonist therapy Hypotension precludes beta-isadora therapy Midodrine therapy Accurate I's and O's Fluid restriction High-protein diet Hepatic encephalopathy resolved Ammonia level returned to normal on discharge SBP Paracentesis with 50 cc sent for analysis 05/19/2023 Paracentesis fluid greater than 250 WBC Paracentesis fluid culture no growth to date IV Rocephin 2 g daily Trending labs and inflammatory markers Bacteremia Blood cultures 05/19/2023 Enterococcus faecalis Repeat Blood cultures 05/21/2023 no growth to date IV Rocephin therapy IV vancomycin therapy Routine peak and trough MRSA screen pending Trending labs and inflammatory markers Patient declined home IV antibiotic therapy on discharge Oral Zyvox 600 mg twice daily for 10 days Alcohol use disorder-severe dependence in remission Routine nursing interaction Thiamine replacement therapy Folic acid replacement therapy B12 replacement therapy The patient identified improvement. He inquired about discharge home. We discussed his improved ammonia level and laboratory studies. Case management and social work were consulted for discharge planning. His mother and sister were at bedside on day of discharge. We discussed his blood cultures and need for home IV antibiotic therapy. They declined home IV antibiotic therapy and we discussed oral Zyvox as a treatment strategy. We discusse
--- NOTE | 2023-05-22 11:41 | SW/DCPLANNER ---
I discussed w/ patient and family regarding IV medication at time of discharge. After lengthy discussion w/ patient, family and MD the patient has chose to discharge home on PO antibiotics. Patient has no further needs/questions at this time. Patient ambulated independently w/ PT. Patient will discharge home today.
--- NOTE | 2023-05-26 14:13 | CARE MANAGER ---
Attempted to contact patient x2 related to hospital discharge. No VM option. LEEANNA Blackmon
== END 2023-05-22 13:13 | disposition home or self-care (01) | DRG 371 ==
LOC: ER 13:57 → 2ND 16:07
PROVIDERS: Family Medicine; Admitting Provider Internal Medicine Adolescent Medicine; Emergency Provider Emergency Medicine; PCP Physician Assistant; Visit Provider Internal Medicine Adolescent Medicine
DX: K65.2 Spontaneous bacterial peritonitis (principal); G92.8 Other toxic encephalopathy; R78.81 Bacteremia; E87.1 Hypo-osmolality and hyponatremia; E87.6 Hypokalemia; T59.891A Toxic effect of other specified gases, fumes and vapors, accidental (unintentional), initial encounter; I95.9 Hypotension, unspecified; K70.31 Alcoholic cirrhosis of liver with ascites; I95.89 Other hypotension; F10.21 Alcohol dependence, in remission
CPT/HCPCS: 49082; 36415; 80048; 80053; 80202; 81001; 82140; 82803; 83605; 83615; 83690; 83735; 84145; 84155; 85007; 85025; 85610; 87040; 87070; 87077; 87186; 87205; 89051; 93005; 97163; 97165; 99285; J0696; J3475